=== PATIENT | male | born 1980 ===

== ENCOUNTER 2018-03-08 22:28 | Emergency (ER) | payer SELFPAY ==
--- NOTE | 2018-03-08 22:54 | C.PDOC ---
History Of Present Illness 37 year old male presents to the ED c/o right shoulder pain. Patient reports that while taking out the garbage he missed a step, rolled down the stairs and landed on his right shoulder. Patient reports he drank some beers today. Patient denies LOC, headache, head injury, blurry vision, nausea, vomit, weakness, numbness. Chief Complaint (Nursing): Upper Extremity Problem/Injury History Per: Patient History/Exam Limitations: no limitations Onset/Duration Of Symptoms: Hrs Current Symptoms Are (Timing): Still Present Quality: "Pain" Exacerbating Factor(s): Movement Recent travel outside of the [place]: No Additional History Per: Patient Past Medical History Reviewed: Historical Data, Nursing Documentation, Vital Signs Vital Signs: Last Vital Signs Temp 98.6 F 03/09/18 02:07 Pulse 81 03/09/18 02:07 Resp 13 03/09/18 02:07 BP 116/79 03/09/18 02:07 Pulse Ox 99 03/09/18 02:07 - Medical History PMH: No Chronic Diseases Surgical History: No Surg Hx Family History: States: Unknown Family Hx - Social History Hx Alcohol Use: Yes Hx Substance Use: No - Immunization History Hx Tetanus Toxoid Vaccination: No Hx Influenza Vaccination: No Hx Pneumococcal Vaccination: No Review Of Systems Constitutional: Negative for: Fever, Chills Eyes: Negative for: Vision Change Cardiovascular: Negative for: Chest Pain, Palpitations Respiratory: Negative for: Shortness of Breath Gastrointestinal: Negative for: Nausea, Vomiting Musculoskeletal: Positive for: Shoulder Pain, Arm Pain Skin: Negative for: Rash Neurological: Negative for: Weakness, Numbness, Headache, Dizziness Physical Exam - Physical Exam Appears: Non-toxic, No Acute Distress Skin: Normal Color, Warm, Dry Head: Atraumatic, Normacephalic Eye(s): bilateral: Normal Inspection Oral Mucosa: Moist Neck: Normal ROM, No Midline Cervical Tenderness, Supple Chest: Symmetrical Cardiovascular: Rhythm Regular Respiratory: Normal Breath Sounds, No Rales, No Rhonchi, No Wheezing Gastrointestinal/Abdominal: Soft, No Tenderness, No Guarding, No Rebound Back: Normal Inspection, No Vertebral Tenderness Extremity: No Normal ROM (right shoulder limited to pain), Tenderness (right distal clavicle), Capillary Refill (< 2 seconds), Swelling (right clavicle, right humeral head) Pulses: Left Radial: Normal, Right Radial: Normal Neurological/Psych: Oriented x3, Normal Speech, Normal Motor, Normal Sensation Gait: Steady ED Course And Treatment O2 Sat by Pulse Oximetry: 99 (On RA) Pulse Ox Interpretation: Normal Orthopedic Time Out: Side verified Procedure: Joint reduction Location: Right Consent obtained: Written Performed by: Attending Physician Diagnosis: Dislocation Type: Closed Location: Right Bone: Humerus Joints: Glenohumeral Joint Procedural Sedation: Propofol Capillary refill: Normal Distal Sensation: Normal Distal Motor Function: Normal Capillary Refill: Normal Distal Sensation: Normal Distal Motor Function: Normal Post-reduction Radiograph: Good Alignment Complications: none Patient tolerated procedure: Well Medical Decision Making Medical Decision Making: Impression: right shoulder pain Plan: * Right clavicle X-Ray * Right shoulder X-RAy * Patient offered pain medications but he declined Possible clavicle Fx vs humeral head FX vs acromion Fx Disposition - Disposition Referrals: Howard Kapadia MD [Staff Provider] - Disposition: HOME/ ROUTINE Disposition Time: 04:46 Condition: FAIR Prescriptions: oxyCODONE/Acetaminophen [Percocet 5/325 mg Tab] 1 tab PO QID PRN #15 tab PRN Reason: Pain, Mild (1-3) Instructions: Shoulder Dislocation (DC), Moderate Sedation in Adults (DC) Forms: [employer] ([employer]) Print Language: CYMRAES - Clinical Impression Clinical Impression: Shoulder dislocation - Scribe Statement The provider has reviewed the documentation as recorded by the Scribe Patel So All medical record entries made by the Scribe were at my direction and personally dictated by me. I have reviewed the chart and agree that the record accurately reflects my personal performance of the history, physical exam, medical decision making, and the department course for this patient. I have also personally directed, reviewed, and agree with the discharge instructions and disposition. Proc Sedation INTRA-PROCEDURE - Medications Medications Given: Discontinued Medications Sodium Chloride (Sodium Chloride 0.9%) 1,000 mls @ 1,000 mls/hr IV .Q1H ONE Stop: 03/09/18 01:42 Last Admin: 03/09/18 00:43 Dose: 1,000 mls/hr eMAR Start Stop Document 03/09/18 00:43 SLF (Rec: 03/09/18 02:28 F [id number]) Intravenous Solution Start Date 03/09/18 Start Time 00:43 End Date 03/09/18 End time 01:43 Total Infusion Time 60 Propofol (Diprivan) 100 mg IV TITR HAYLIE Propofol (Diprivan) 100 mg IV ONCE ONE Stop: 03/09/18 00:46 Last Admin: 03/09/18 00:43 Dose: 100 mg eMAR Start Stop Document 03/09/18 00:43 SLF (Rec: 03/09/18 01:44 SLF [id number]) Intravenous Solution Start Date 03/09/18 Start Time 00:43 End Date 03/09/18 End time 00:45 Total Infusion Time 2 Propofol (Diprivan) 60 mg IV STAT STA Stop: 03/09/18 02:08 Last Admin: 03/09/18 00:46 Dose: 60 mg eMAR Start Stop Document 03/09/18 00:46 SLF (Rec: 03/09/18 02:24 SLF [id number]) Intravenous Solution Start Date 03/09/18 Start Time 00:46 End Date 03/09/18 End time 00:48 Total Infusion Time 2 Proc Sedation POST-PROCEDURE - Discharge Checklist Written MD order for Discharge: Yes Vital signs assessed and are consistent with pre-procedure reading: Yes Minimal nausea, vomiting, and dizziness: Yes Ambulates to pre-procedural level: Yes Alert and oriented to pre-procedural level: Yes Responsible adult escort present: Yes DISCHARGE INSTRUCTIONS GIVEN:: Yes Proc Sedation PRE-PROCEDURE - Pre-Anesthesia Chief Complaint: Upper Extremity Problem/Injury Past Medical History: Medications Reviewed, Allergies Reviewed, Record Review Previous Surgies: Reviewed Family History/Social History: Reviewed - Physical Exam/Review of Systems Vital Signs Reviewed: Yes Cardiovascular: Regular Rate and Rhythm, Normal S1, S2. denies: Murmurs Respiratory/Chest: Clear to Auscultation, Good Air Exchange. denies: Respiratory Distress, Accessory Muscle Use Neurological: GCS=15, CN II-XII Intact, Speech Normal Abdomen: Normal Bowel Sounds. denies: Tenderness, Distention, Peritoneal Signs Mental Status: Alert and Oriented X 3 - Pre-Procedure Airway Assessment History of difficult intubation or surgical airway (i.e trach):: No Inability to extend neck:: No Mouth opening less than two finger breadth:: No Diagnosis of sleep apnea:: No Less than three finger breadth to hyoid bone:: No ASA Criteria: 1 - Healthy, normal. 2 - Mild systemic disease (No functional limitations, mildline obesity, DM withot complications, Hypertention). 3 - Severe systemic disease (Some functional limitation, stable angina, morbid obesity, controlled COPD/Asthma/CHF). 4 - Sever systemic disease constant threat to life (Unstable angina, active symptoms of COPD/Asthma, CHF/ Hypertension. 5 - Moribund ASA Clarification: ASA I
[2018-03-09] MEDS ORDERED: Propofol 10 mg/ml Inj (100 ml) IV SCH (00:30)
[2018-03-09] MEDS ORDERED: Sodium Chloride 0.9% 1,000 ML ONE (00:34)
[2018-03-09] MEDS ORDERED: Sodium Chloride 0.9% 1,000 ML IV ONE (00:43)
[2018-03-09] MEDS ORDERED: Propofol 10 mg/ml Inj (20 ML) IV ONE (00:45)
[2018-03-09 01:40] VITALS: TEMP 98.6
[2018-03-09 01:41] VITALS: RESP 13
[2018-03-09] MEDS ORDERED: Propofol 10 mg/ml Inj (20 ML) IV STA (02:07)
[2018-03-09 02:26] VITALS: BP 116/79; PULSE 81; O2SAT 99
--- NOTE | 2018-03-09 15:20 | RAD ---
PROCEDURE: Radiographs of the Right Shoulder HISTORY: trauma COMPARISON: No prior. FINDINGS: BONES: Normal. No fracture. JOINTS: Anterior inferior dislocation right humeral head with respect to the glenoid. SOFT TISSUES: Normal. OTHER FINDINGS: None. IMPRESSION: Anterior inferior dislocation right humeral head with respect to the glenoid. No definitive evidence of acute displaced fracture
--- NOTE | 2018-03-09 15:21 | RAD ---
PROCEDURE: Radiographs of the right clavicle. HISTORY: trauma COMPARISON: None. FINDINGS: RIGHT CLAVICLE: No fracture or focal lesion. JOINTS: Anterior inferior dislocation right humeral head with respect to the glenoid. No definitive evidence of acute displaced fracture SOFT TISSUES: Grossly unremarkable. OTHER FINDINGS: None. IMPRESSION: Anterior inferior dislocation right humeral head with respect to the glenoid. No definitive evidence of acute displaced fracture
--- NOTE | 2018-03-09 15:25 | RAD ---
PROCEDURE: Two views of the right shoulder and single view of the left shoulder performed HISTORY: Post reduction COMPARISON: Comparison made with prior radiographs of the right shoulder FINDINGS: BONES: Right shoulder: No definitive radiographic evidence of acute displaced fracture Left shoulder: Normal. No fracture. JOINTS: Right shoulder: There has been interval reduction previously noted anterior inferior dislocation right humeral head with respect to glenoid. . Minimal degenerative changes right acromioclavicular joint. Left shoulder: Minimal degenerative changes left acromioclavicular joint. SOFT TISSUES: Right shoulder: Grossly unremarkable. Right shoulder: Grossly unremarkable. OTHER FINDINGS: None. IMPRESSION: There has been interval reduction previously noted anterior inferior dislocation right humeral head with respect to glenoid. . No definitive radiographic evidence of acute displaced fracture. .
== END 2018-03-09 02:10 | disposition home or self-care (01) ==
LOC: C.ER 22:28
DX: S43.014A Anterior dislocation of right humerus, initial encounter (principal); W10.9XXA Fall (on) (from) unspecified stairs and steps, initial encounter
CPT/HCPCS: 23650; 73000; 73020; 73030; 94770; 96360; 99285; J2704; J7030

== ENCOUNTER 2019-01-07 09:22 | Emergency (ER) | payer OTHER ==
[2019-01-07 09:30] VITALS: RESP 20; O2SAT 98
--- NOTE | 2019-01-07 09:55 | C.PDOC ---
History Of Present Illness 38 y/o male,with no significant PMhx, presents to the ER complaining of tactile fever and productive cough which has been present for the past 4 days. Patient states that he has chest pain only with respiration. Patient is also complaining of inguinal hernia which has been present for the past 4-5 years. He notes that he has not followed up with surgeon as of yet. Patient denies having chills, dizziness, syncope, SOB, nausea, vomiting, sick contacts, abdominal pain, urinary symptoms or recent travel. Chief Complaint (Nursing): Cough, Cold, Congestion History Per: Patient History/Exam Limitations: no limitations Onset/Duration Of Symptoms: Days Current Symptoms Are (Timing): Still Present Severity: Moderate Past Medical History Reviewed: Historical Data, Nursing Documentation, Vital Signs Vital Signs: Last Vital Signs Temp 99.3 F 01/07/19 09:30 Pulse 74 01/07/19 09:30 Resp 20 01/07/19 09:30 BP 143/86 01/07/19 09:30 Pulse Ox 98 01/07/19 09:30 Primary Care Provider: Non [facility] Provider, - Medical History PMH: No Chronic Diseases Surgical History: Appendectomy Family History: States: No Known Family Hx - Social History Hx Alcohol Use: Yes Hx Substance Use: No - Immunization History Hx Tetanus Toxoid Vaccination: No Hx Influenza Vaccination: No Hx Pneumococcal Vaccination: No Review Of Systems Except As Marked, All Systems Reviewed And Found Negative. Constitutional: Positive for: Fever (tactile fever). Negative for: Chills Cardiovascular: Positive for: Chest Pain Respiratory: Positive for: Cough (productive cough). Negative for: Shortness of Breath Gastrointestinal: Negative for: Nausea, Vomiting, Abdominal Pain Physical Exam - Physical Exam Appears: Non-toxic, No Acute Distress Skin: Normal Color, Warm, Dry Head: Atraumatic, Normacephalic Eye(s): bilateral: Normal Inspection Ear(s): Bilateral: Normal Nose: Normal Oral Mucosa: Moist Throat: Normal, No Erythema, No Exudate Neck: Supple Chest: Symmetrical Cardiovascular: Rhythm Regular Respiratory: No Rales, Rhonchi (diffuse rhonchi), No Wheezing, Other (good air movement) Gastrointestinal/Abdominal: Bowel Sounds (normal bowel sounds), Soft, No Tenderness, No Guarding, No Rebound, Hernia (large right inguinal hernia) Neurological/Psych: Oriented x3, Normal Speech ED Course And Treatment O2 Sat by Pulse Oximetry: 98 (RA) Pulse Ox Interpretation: Normal - Other Rad CXR X-Ray: Viewed By Me, Read By Radiologist Interpretation: HISTORY: cough/fever. COMPARISON: No prior. TECHNIQUE: Chest PA and lateral, 2 views. FINDINGS: LUNGS: Subtle retrocardiac region of atelectasis or pneumonia seen solely on lateral view. Please note that chest x- ray has limited sensitivity for the detection of pulmonary masses. PLEURA: No significant pleural effusion identified. No definite pneumothorax . CARDIOVASCULAR: The cardiomediastinal silhouette appears within normal limits of size. No atherosclerotic calcification present. OSSEOUS STRUCTURES: No acute osseous abnormality identified. VISUALIZED UPPER ABDOMEN: Unremarkable. OTHER FINDINGS: None. IMPRESSION: Subtle retrocardiac atelectasis or pneumonia seen on lateral view. Medical Decision Making Medical Decision Making: Plan: --CXR --Duoneb --Zithromax PO Updates: On re-evaluation, patient feels better. Patient has been discharged and instructed to follow up in clinic and with surgeon. Disposition Counseled Patient/Family Regarding: Studies Performed, Diagnosis, Need For Followup - Disposition Referrals: [facility]er [facility] [Outside] [facility] [Outside] Mauricio Grossman MD [Staff Provider] - Disposition: HOME/ ROUTINE Disposition Time: 11:05 Condition: IMPROVED Additional Instructions: HUMBERTO JORGE, thank you for letting us take care of you today. Your provider was Aysha Hawk MD and you were treated for COUGHING/CONGESTION. The emergency medical care you received today was directed at your acute symptoms. If you were prescribed any medication, please fill it and take as directed. It may take several days for your symptoms to resolve. Return to the Emergency Department if your symptoms worsen, do not improve, or if you have any other problems. Please contact your doctor or call one of the physicians/clinics you have been referred to that are listed on the Patient Visit Information form that is included in your discharge packet. Bring any paperwork you were given at discharge with you along with any medications you are taking to your follow up visit. Our treatment cannot replace ongoing medical care by a primary care provider outside of the emergency department. Thank you for allowing the [facility] team to be part of your care today. I Prescriptions: Azithromycin [Zithromax] 250 mg PO DAILY #4 tab Instructions: Groin Hernia (DC), Community-Acquired Pneumonia, Adult (DC) Forms: Gen Discharge Inst Japanese, [employer] (Japanese) Print Language: CHINESE - POA Present On Arrival: None - Clinical Impression Clinical Impression: Pneumonia, Inguinal hernia - Scribe Statement The provider has reviewed the documentation as recorded by the Mechelle Quinones Provider Attestation: All medical record entries made by the Mechelle were at my direction and personally dictated by me. I have reviewed the chart and agree that the record accurately reflects my personal performance of the history, physical exam, medical decision making, and the department course for this patient. I have also personally directed, reviewed, and agree with the discharge instructions and disposition.
[2019-01-07] MEDS ORDERED: Albuterol-Ipratrop 3 mg / 0.5 (3 ml) UD ONE (10:13)
[2019-01-07] MEDS: Albuterol-Ipratrop 3 mg / 0.5 (3 ml) UD IH SCH ×2 (10:21→10:22)
--- NOTE | 2019-01-07 10:40 | RAD ---
HISTORY: cough/fever COMPARISON: No prior. TECHNIQUE: Chest PA and lateral, 2 views FINDINGS: LUNGS: Subtle retrocardiac region of atelectasis or pneumonia seen solely on lateral view. Please note that chest x-ray has limited sensitivity for the detection of pulmonary masses. PLEURA: No significant pleural effusion identified. No definite pneumothorax . CARDIOVASCULAR: The cardiomediastinal silhouette appears within normal limits of size. No atherosclerotic calcification present. OSSEOUS STRUCTURES: No acute osseous abnormality identified. VISUALIZED UPPER ABDOMEN: Unremarkable. OTHER FINDINGS: None. IMPRESSION: Subtle retrocardiac atelectasis or pneumonia seen on lateral view.
[2019-01-07 10:53] VITALS: BP 158/100; PULSE 97; TEMP 98.3
== END 2019-01-07 11:21 | disposition home or self-care (01) ==
LOC: C.ER 09:22
DX: J18.9 Pneumonia, unspecified organism (principal); K40.90 Unilateral inguinal hernia, without obstruction or gangrene, not specified as recurrent